=== PATIENT | female | born 1960 | race African-American/Black ===

== ENCOUNTER 2018-07-11 15:06 | Inpatient (IN) | payer OTHER ==
[~2018-07-11] VITALS: Ht 172.7 cm; Wt 72.8 kg
[2018-07-11 15:15] VITALS: Ht 172.7 cm; Wt 72.8 kg
[2018-07-11 17:31] LABS: PLATELET COUNT 437 x10^3mcL (130-400); RED CELL DISTRIBUTION WIDTH 27.8 % (11.5-14.5)
[2018-07-11 17:34] LABS: CALCIUM 7.9 mg/dL (8.5-10.1); CARBON DIOXIDE 28.2 mmol/L (21-32); CREATININE SERUM 1.2 mg/dL (0.6-1.0); POTASSIUM SERUM 4.6 mmol/L (3.5-5.1)
[2018-07-11 17:40] LABS: BILIRUBIN TOTAL 1.14 mg/dL (0.20-1.00)
[2018-07-11 18:07] LABS: BAND NEUTROPHIL 0 % (0-10); BASOPHIL 0 % (0-2); MONOCYTE 4 % (0-7); SEGMENTED NEUTROPHILS 81 % (37-75); rbc morphology (normal/abnorm) ABNORMAL (NORMAL)
[2018-07-11 18:08] LABS: PLATELET MORPHOLOGY GIANT PLATELET SEEN; target cell (codocyte) 2+
[2018-07-11] MEDS ORDERED: PHARBETOL325 MG (18:54)
[2018-07-11] MEDS ORDERED: NEXIUM2.5 MG/Pa1 (18:55)
[2018-07-11] MEDS ORDERED: NOR5 (18:55)
[2018-07-11] MEDS ORDERED: PHARMASSURE FO0.4 MG (18:55)
[2018-07-11] MEDS ORDERED: ATORVASTATIN CA40 M1 (18:55)
[2018-07-11] MEDS ORDERED: GOOD SENSE ASPI81 M3 (18:55)
[2018-07-11] MEDS ORDERED: LISINOPRIL2.5 MG (18:55)
[2018-07-11 19:12] LABS: MAGNESIUM 1.9 mg/dL (1.8-2.4); PHOSPHOROUS 3.3 mg/dL (2.5-4.9)
[2018-07-11 19:13] LABS: CHOLESTEROL/HDL RATIO 4.1
[2018-07-11 19:35] VITALS: BP 121/49
[2018-07-11 21:17] LABS: IRON 55 ug/dL (50-170)
[2018-07-11 21:18] LABS: TOTAL IRON BINDING CAPACITY 150 ug/dL (250-450)
[2018-07-12 05:48] VITALS: BP 103/53
[2018-07-12 09:02] VITALS: BP 101/47
[2018-07-12 12:35] LABS: CALCIUM 8.4 mg/dL (8.5-10.1); CARBON DIOXIDE 23.8 mmol/L (21-32); CREATININE SERUM 1.3 mg/dL (0.6-1.0); PHOSPHOROUS 5.5 mg/dL (2.5-4.9); POTASSIUM SERUM 5.1 mmol/L (3.5-5.1)
[2018-07-12 12:58] LABS: PLATELET COUNT 412 x10^3mcL (130-400)
[2018-07-12 14:21] LABS: BAND NEUTROPHIL 2 % (0-10); BASOPHIL 0 % (0-2); SEGMENTED NEUTROPHILS 76 % (37-75); rbc morphology (normal/abnorm) ABNORMAL (NORMAL)
[2018-07-12 14:22] LABS: PLATELET MORPHOLOGY PLATELETS INCREASED; target cell (codocyte) 2+
[2018-07-12] MEDS ORDERED: NORCO1 TA2 PO (15:49)
[2018-07-12 16:53] VITALS: BP 123/51
[2018-07-12 16:57] VITALS: BP 123/51
[2018-07-12 21:33] VITALS: BP 127/51
[2018-07-13 05:52] VITALS: BP 131/43
[2018-07-13 09:52] VITALS: BP 130/49
== END 2018-07-13 14:23 | DRG 662 ==
LOC: ED 15:06 → MU 18:22
PROVIDERS: Emergency Medicine; ADMIT Internal Medicine
PROC: 30233N1 Transfusion of Nonautologous Red Blood Cells into Peripheral Vein, Percutaneous Approach (ICD-10-PCS; principal; 2018-07-11)
DX: D57.00 Hb-SS disease with crisis, unspecified (principal); N17.9 Acute kidney failure, unspecified; E44.0 Moderate protein-calorie malnutrition; R56.9 Unspecified convulsions; F25.9 Schizoaffective disorder, unspecified; I69.351 Hemiplegia and hemiparesis following cerebral infarction affecting right dominant side; E86.0 Dehydration; E78.1 Pure hyperglyceridemia; I10 Essential (primary) hypertension; Z66 Do not resuscitate; Z99.3 Dependence on wheelchair; Z68.29 Body mass index [BMI] 29.0-29.9, adult; Z88.5 Allergy status to narcotic agent
CPT/HCPCS: 83880; 97110-GP; 97530-GP; J1200; J1630; J1940; J2060; J2270; J2405; J7030; J7040; P9016; Q0092; Q0163